=== PATIENT | male | born 2005 | race Caucasian/White ===

== ENCOUNTER 2024-07-23 15:37 | Emergency (ER) | payer BC ==
[~2024-07-23] VITALS: Ht 185.4 cm; Wt 105.0 kg
[2024-07-23 15:51] VITALS: TEMP 98
--- NOTE | 2024-07-23 16:08 | Physician Documentation ---
History of Present Illness ~ Chief Complaint: Wound Stated Complaint: ARM INFECTION Time Seen by MD: 16:21 HPI This 19-year-old male presents with a wound to his right wrist with red streaking traveling up his right arm, patient reports he was seen at [facility] yesterday diagnosed with lymphangitis, patient reports he feels this is getting worse. Patient reports no fever, chills, or other systemic symptoms. Patient indicates that he does play football and but has not played football in the last week or two he was also in nursing school.. He also indicates that he received IV antibiotics at [facility] yesterday and was placed on cefuroxime interestingly Day of Onset of Wound: Jul 23, 2024 Medication Reconciliation Allergies: Coded Allergies: No Known Allergies (Unverified , 07/23/24) Scheduled Cephalexin*Monohydrate* (Keflex*), 1 CAP PO QID Sulfamethoxazole/Trimethoprim (Septra Ds Tab), 1 TAB PO Q12H Physical Exam Vital Signs: Temperature: 98.0, Source: Temporal, Heart Rate: 74, Respiratory Rate: 18, BP: 144/69, Pulse Oximetry: 98, Weight: 105.000 Physical Exam VITALS: Reviewed and as above. GENERAL: Alert, nontoxic appearing, no apparent distress. RESPIRATORY: No increased work of breathing, no respiratory distress, speaking in full clear sentences SKIN: Skin of right arm red streak extending from right anterior forearm up into upper arm, the crusty yet vesicular lesion approximately 2 cm x 2 cm two right forearm at the origin of red streaking Progress Results/Orders Results/Orders Orders - ANTWON RIVERA [employer] Culture Body Fluid Order (07/23/24 ) Vital Signs 07/23/24 07/23/24 15:51 16:26 Temp 98.0 Pulse 74 Resp 18 B/P (MAP) 144/69 Pulse Ox 98 Medical Decision Making Findings MSE performed in triage and patient returned to ED lobby by nursing staff Patient presents with a lymphangitis on his right arm with a crusty wound with some bolus lesions. I initially suspect impetigo and lymphangitis. Especially the case with his history of football and recent exposure in nursing school. Patient remains nontoxic appearing and does not meet criteria for SIRS Going to treat him in the outpatient setting with Bactrim and Keflex order a wound culture for confirmation Departure Disposition: HOME / SELF CARE / HOMELESS Impression: Primary Impression: Wound cellulitis Additional Impressions: Impetigo Lymphangitis Condition: Stable Referrals: NO PRIMARY CARE PROVIDER (PCP) Prescriptions Cephalexin*Monohydrate* (Keflex*) 500 Mg Capsule 1 CAP PO QID, #40 CAP Prov: ANTWON RIVERA NP 07/23/24 Sulfamethoxazole/Trimethoprim (Septra Ds Tab) 800 Mg/160 Mg Tablet 1 TAB PO Q12H for 10 Days, #20 TAB Prov: ANTWON RIVERA NP 07/23/24 Education Educated: Patient Educated regarding: diagnosis Signature Scribe Signature: f Attestation: The note accurately reflects work and decisions made by me.Antwon Thurman NP 07/23/24 17:07 OIM PURCELL Jul 23, 2024 16:08 ANTWON RIVERA NP Jul 23, 2024 16:48
[2024-07-23] MEDS ORDERED: SULF1TAB45 PO (16:55)
[2024-07-23] MEDS ORDERED: CEPH-585 PO (16:55)
[2024-07-23 17:17] VITALS: BP 137/78; PULSE 80; RESP 16; O2SAT 97
== END 2024-07-23 17:24 | disposition home or self-care (01) ==
LOC: ER 15:38
DX: L03.113 Cellulitis of right upper limb (principal); L01.00 Impetigo, unspecified
CPT/HCPCS: 87070; 87077; 87102; 87186; 99283